=== PATIENT | male | born 1990 | race Caucasian/White ===

== ENCOUNTER 2017-07-04 16:49 | Emergency (ER) | payer OTHER ==
[~2017-07-04] VITALS: Ht 177.8 cm; Wt 120.0 kg
[~2017-07-04 16:49] MED LIST: ASPIRIN EC81 MG PO; AUGMENTIN875TAB PO; FLONASE NASAL50 MCG; LISINOPRIL2.5 MG PO; METFORMIN500 M1 PO; METFORMIN500 MG PO; PRAVASTATIN10 MG PO; TENORMIN25 MG PO
[2017-07-04] MEDS ORDERED: ASPIRIN 8181 MG PO (17:16)
[2017-07-04] MEDS ORDERED: LEVOTHYROXIN50 MCG PO (17:16)
[2017-07-04] MEDS ORDERED: METFORMIN500 MG PO (17:17)
[2017-07-04] MEDS ORDERED: METHIMAZOLE5 MG PO (17:17)
[2017-07-04] MEDS ORDERED: LOPRESSOR25 MG PO (17:18)
[2017-07-04 17:52] LABS: IMMATURE GRANULOCYTES 0.3 % (0.0-1.0); MEAN CORPUSCULAR HGB 27.6 pG CALC (26.0-32.0); NEUT# 5.11 thou/uL (1.82-7.42); RED BLOOD COUNT 5.8 mill/uL (4.70-6.10); RED CELL DISTRI WIDTH 13.2 % (11.5-15.5)
[2017-07-04 18:15] LABS: ALKALINE PHOSPHATASE 114 u/l (38-126); ANION GAP 18 (6-22 (CALC)); BILIRUBIN, TOTAL 0.6 mg/dL (0.0-1.4); BUN 13 mg/dL (9-20); BUN/CREATININE RATIO 13 (12-20 (CALC)); CARBON DIOXIDE 28 mmol/l (22-30); CHLORIDE 100 mmol/l (95-108); GFR > 60 ML/MIN (>=60 (CALC)); GFR FOR AFR.AMER. > 60 ML/MIN (>=60 (CALC)); POTASSIUM 3.9 mmol/l (3.5-5.1); SGOT/AST 41 u/l (17-59); SGPT/ALT 49 u/l (21-72); SODIUM 143 mmol/l (137-146); TOTAL PROTEIN 7.9 g/dL (6.3-8.2)
[2017-07-04 18:19] LABS: ALBUMIN 4.8 g/dL (3.2-5.0)
[2017-07-04 18:26] LABS: MYOGLOBIN 79 ng/mL (0 - 121)
[2017-07-04 19:37] LABS: ACT PARTIAL THROMBO TIME 28.9 SECONDS (20.0-32.5); PROTHROMBIN TIME 11.5 SECONDS (9.0-12.5)
[2017-07-04 21:26] LABS: TSH, 3RD GENERATION 0.95 uIU/mL (0.47 - 4.68)
[2017-07-04 22:36] LABS: URINE BILIRUBIN - DIPSTICK NEGATIVE (NEGATIVE); URINE BLOOD DIPSTICK NEGATIVE (NEGATIVE); URINE COLOR YELLOW; URINE GLUCOSE - DIPSTICK NEGATIVE (NEGATIVE); URINE KETONE TRACE mg/dL (NEGATIVE); URINE LEUK ESTERASE NEGATIVE (NEGATIVE); URINE NITRITE - DIPSTICK NEGATIVE (Negative); URINE PROTEIN - DIPSTICK NEGATIVE (NEG-TRACE); URINE SPECIFIC GRAVITY 1.025
[2017-07-04 22:41] LABS: URINE CLARITY CLEAR
[2017-07-05] VITALS: BP 120/75
== END 2017-07-05 | disposition home or self-care (01) | DRG 313 ==
LOC: ED 16:49
PROVIDERS: Emergency Medicine; Family Medicine
DX: R07.89 Other chest pain (principal); E07.9 Disorder of thyroid, unspecified; E11.9 Type 2 diabetes mellitus without complications; I51.9 Heart disease, unspecified